=== PATIENT | female | born 1945 | race Caucasian/White ===

== ENCOUNTER → 2019-10-29 | Outpatient (CLI) | payer MEDICARE ==
[~2019-10-29] MED LIST: DIATRIZOATE MEGLUMINE 18% 300 ML SOLUTION. BLADIN ONE
--- NOTE | 2019-10-29 12:16 | RAD ---
Cystogram. INDICATION: Status post left urinary bladder laceration with repair. COMPARISON: No relevant comparisons currently available. TECHNIQUE: A total of 50 mL of Cystografin was instilled into the bladder through an indwelling Pagan catheter and multiple projections of the urinary bladder were obtained under fluoroscopy. A total of 12 fluoroscopic images were acquired using 0.6 minutes of total fluoroscopy time. FINDINGS: Caddie image was unremarkable. Instillation of contrast material into the urinary bladder revealed no evidence of extravasation or extrinsic mass effect on the bladder. A Pagan catheter was in place with a well inflated balloon. IMPRESSION: No evidence of a bladder leak on cystogram under fluoroscopy. Electronically signed by: Fiorella Austin MD (10/29/2019 12:13 PM) [id number]
== END | disposition home or self-care (01) ==
LOC: RAD 08:30
DX: S37.23XD Laceration of bladder, subsequent encounter (principal); X58.XXXD Exposure to other specified factors, subsequent encounter
CPT/HCPCS: 74430; Q9958